=== PATIENT | female | born 1960 | race Two or more races ===

== ENCOUNTER 2020-12-17 12:25 | Emergency (ER) | payer OTHER ==
[~2020-12-17] VITALS: Ht 165.1 cm; Wt 78.5 kg
[2020-12-17] MEDS ORDERED: JARDIANCE10 MG PO (12:28)
[2020-12-17] MEDS ORDERED: JANUVIA50 MG PO (12:28)
[2020-12-17] MEDS ORDERED: ATACAND32 MG (12:29)
[2020-12-17] MEDS ORDERED: CELEXA20 MG PO (12:29)
[2020-12-17] MEDS ORDERED: ASA81 MG PO (12:29)
[2020-12-17] MEDS ORDERED: SYNTHROID75 MCG PO (12:29)
[2020-12-17] MEDS ORDERED: PEPCID AC20 MG PO (17:24)
[2020-12-17] MEDS ORDERED: ONDANSETRON ODT4 MG PO (17:24)
[2020-12-17] MEDS ORDERED: PEDIALYTE1000 ML (17:25)
== END 2020-12-17 18:33 ==
LOC: ER 12:25
DX: K29.00 Acute gastritis without bleeding (principal); Z03.818 Encounter for observation for suspected exposure to other biological agents ruled out